=== PATIENT | female | born 1990 | race Caucasian/White ===

== ENCOUNTER 2024-05-08 18:09 | Emergency (ER) | payer MEDICAID, SELFPAY ==
[2024-05-08 18:11] VITALS: BP 120/66
--- NOTE | 2024-05-08 19:03 | ED.GENMED ---
History of Present Illness
General
Chief Complaint: Suicidal Ideation
Time Seen by Provider: 05/08/24 19:03
History of Present Illness
History of Present Illness:
TIME OF INITIAL ENCOUNTER: 7:05 PM
HPI: I spoke to the sister at bedside in one of the crisis rooms for history. Her grandmother was also present. The patient got into an argument with her last night. She admits to drinking last night. She states she did not drink any
alcohol today. She also has a history of bipolar and is compliant with Vraylar. She also has a prescription for Ativan 1 mg and hydroxyzine but did not take either today. At 1 point, she also said that 'the mistletoe is not going to be the only
thing hanging'. Her left her and took the kids. She was in [place] today where she lives and a 302 was filed on her but then her sister brought her here.
EXAM:
GENERAL: Has somewhat of a flat affect
HEENT: Moist oral mucosa
CARDIOVASCULAR: No murmurs, normal heart rate, regular rhythm, No chest wall tenderness
PULMONARY: No respiratory distress, breath sounds are clear and equal
ABDOMEN: Soft with no peritoneal signs, no tenderness
NEUROLOGIC: Excellent strength all extremities, no coordination deficits
PSYCHIATRIC: Flat depressed affect, reasonable insight and judgment
EXTREMITIES: Nontender, no edema, moves all extremities equally
SKIN: No rash, no lesions
NUMBER AND COMPLEXITY OF PROBLEMS ADDRESSED AT THE ENCOUNTER
� Chronic conditions affecting care: Bipolar disorder
� Acute Exacerbation and/or Progression of Chronic Illness: This is an acute problem but is had similar episode in the past
� Differential Diagnosis includes: Exacerbation of bipolar disorder, SI
AMOUNT AND/OR COMPLEXITY OF DATA TO BE REVIEWED AND ANALYZED
� I performed an independent evaluation of and my interpretation is:
EKG:
CT:
X-rays:
Laboratory Studies:
Other:
� Review of other/old records: No old records available for review in [facility]
� Clinical information was obtained by an independent historian: I spoke to the sister and the grandmother at bedside
� Prescriptions/Medications Considered but not given:
� Further testing considered but not performed:
RISK OF COMPLICATIONS AND/OR MORBIDITY OR MORTALITY OF PATIENT MANAGEMENT
� Social determinants of health affecting care: Lives in [place], [place] w/ and does not have insurance
� Discussion with other providers: I spoke to crisis and asked for consult at 7:15 PM; I spoke to the telemetry psych psychiatrist who recommends adding Trileptal 150 mg twice daily on top of the Vraylar 6 mg daily as she still
has been experiencing unstable moods recently. The psychiatrist recommends psychiatric admission on a voluntary basis.
� Escalation of care including admission/observation vs risk of discharge considered: The patient has been cooperative here.
ANY OTHER UPDATES:
Phy Exam
Physical Exam
Physical Exam:
See HPI
Course
Orders/Labs/Results
Orders:
Orders
05/08/24 18:13
1:1 Observation - Suicide/ Violent Behavior As Directed
05/08/24 19:04
Crisis Consult Urgent
Reason for Consult: SI
05/09/24 01:35
Consult Notification Routine
Specialty to Notify: Psychiatry
Consult Psychiatry [PSYCHIATRY CONSULT] Urgent
Consulting Provider: Lesley Cole
Was physician already notified: No
Reason for consult: SI, ?need for placement; resident of [facility], no ins
05/09/24 04:23
Lorazepam [Ativan] 1 mg .ROUTE .STK-MED ONE
05/09/24 04:24
Lorazepam [Ativan] 1 mg PO NOW STA
05/09/24 09:00
Oxcarbazepine [Trileptal] 150 mg PO BID
Vital Signs
Initial and Last Documented VS:
Initial Vital Signs
Temp Pulse Resp BP Pulse Ox
98.3 F 70 18 120/66 98
05/08/24 18:11 05/08/24 18:11 05/08/24 18:11 05/08/24 18:11 05/08/24 18:11
Last Documented Vital Signs
Temp Pulse Resp BP Pulse Ox
98.5 F 75 18 102/59 98
05/09/24 09:30 05/09/24 09:30 05/09/24 09:30 05/09/24 09:30 05/09/24 09:30
*Critical Care Note
Total Time (30-74mins, 75-104mins- exclusive of procedures): Not Applicable
ED Attending Note
-
Portions of this chart may have been created with voice recognition software.� Occasional wrong word or��sound alike� substitutions may have occurred due to the inherent limitations of voice recognition software.
Discharge Plan
Departure
Patient Disposition: Home (Routine Discharge)
Date of Disposition: 05/08/24
Time of Disposition: 19:45
Patient with high blood pressure during this ER visit?: No
Discharge Problem:
Depression
Instructions: Depression, Adult (DC)
Activity Restrictions/Additional Instructions:
You were seen in the emergency department for concern of suicidal ideations and depression
You were seen by the psychiatrist and deemed appropriate for outpatient follow-up.
Please follow-up closely with your primary care physician.
Return to the emergency department for any worsening of your symptoms including feelings of wanting to hurt yourself or others, or any development of chest pain, difficulty breathing, abdominal pain with persistent vomiting and inability to tolerate
food or liquid by mouth (concern for dehydration), weakness, headache or confusion, fever greater than 100.4, or any additional symptoms that are concerning to you.
Thank you for choosing [facility].
Interventions
Interventions:
*Risk Screen - Suicide Last Done: 05/08/24 18:12
*General Assessment Last Done: 05/08/24 20:00
*Neglect/Abuse Screening Last Done: 05/08/24 19:21
ED- Fall Risk Assessment Last Done: 05/09/24 09:59
*ED COVID-19 Vaccine History Last Done: 05/08/24 20:00
*Nursing Disposition Last Done: 05/09/24 14:30
ED-Psychological Assessment Last Done: 05/08/24 19:21
Discharge Date and Time
Discharge Date/Time: 05/09/24 14:35
Print Language: TELUGU
[2024-05-09] MEDS: ATIVAN 1 MG PO (04:24)
[2024-05-09 09:30] VITALS: BP 102/59
[2024-05-09] MEDS: TRILEPTAL 150 MG PO (09:43)
--- NOTE | 2024-05-09 11:30 | CON.MD ---
Consultation - Medical
-
Pt seen- chart reviewed- 30 minutes spent
33 year old female brought in to Crisis Center after her filed a 302 petition in [facility] on her for statements of suicidal ideation.
Pt was cooperative and tearful. Says that she and were drinking alcohol on Friday when they got into a disagreement. Pt admits to feeling depressed recently. 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 She
is eager to start intensive outpatient treatment for her mood disturbance and personality disorder. Needs substance abuse help also.
Pt is non- psychotic and strongly denies suicidal intent or ideation now that she is no longer intoxicated. She is distressed that her and 's family have blocked her on social media.
Her grandmother - Beronica Ku is willing to come and pick pt up and have her stay with her for the time being. 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
302 is dismissed.
--- NOTE | 2024-05-09 12:00 | ED.CRISIS ---
ED Crisis Note
ED Crisis Note
Subjective:
33-year-old female, history of depression, presenting to the emergency department on a 302, however [facility]. Patient under a 302 by family. Patient has been distressed because her left her, and took her
children. Patient is agreeable to getting help. Patient seen by telepsych in the emergency department and 302 did not uphold, however recommending inpatient therapy if patient wants help. Pending psychiatry consultation.
Objective:
Patient hemodynamically stable in the emergency department, cooperative. No acute observed psychosis or psychiatric distress.
Assessment/Plan:
Patient seen by psychiatry and 302 not upheld. Per psych, feel patient can go home, will stay with family. Plan for outpatient psych follow-up. Patient remains hemodynamically stable, does not appear to be a threat to herself or others, feel
stable for discharge
--- NOTE | 2024-05-09 14:32 | CM ---
Cm met with patient and grandmother in room. Patient and grandmother were meeting with antique auto museum maintenance worker to discuss after care options. CM reinforced that patient has to contact the [facility] office to move forward with medicaid. Patient
advised this CM that she has attempted to apply but she and her made too much money. Patient is aware of the [employer] and [facility] for insurance options.
== END 2024-05-09 14:35 | disposition home or self-care (01) ==
LOC: EMR 18:09
PROVIDERS: CONSULT PHYSICIAN Psychiatry & Neurology Psychiatry; EMERGENCY PHYSICIAN Emergency Medicine
DX: F31.9 Bipolar disorder, unspecified (principal); R45.851 Suicidal ideations; Z79.899 Other long term (current) drug therapy; Z90.49 Acquired absence of other specified parts of digestive tract
CPT/HCPCS: 99282